=== PATIENT | female | born 1950 | race Two or more races ===

== ENCOUNTER → 2016-11-10 | Outpatient (REF) | payer OTHER, MEDICARE | LOC: M SFHCLERA 12:07 | PROVIDERS: ATTEND Nurse Practitioner Family | DX: R30.0 Dysuria (principal) | CPT/HCPCS: 81002; 87088; 87186; G0463 ==

== ENCOUNTER → 2017-08-23 | Outpatient (REF) | payer OTHER ==
[2017-08-23 13:35] LABS: VITAMIN B12 LEVEL 527 PG/ML (247-911)
== END ==
LOC: M LAB REF 12:27
DX: R35.0 Frequency of micturition (principal); R41.3 Other amnesia
CPT/HCPCS: 82607